=== PATIENT | male | born 1960 ===

== ENCOUNTER 2025-01-30 18:05 | Inpatient (IN) | payer MEDICARE, MEDICAID ==
[~2025-01-30] VITALS: Ht 170.2 cm; Wt 80.3 kg
[~2025-01-30 18:05] MED LIST: AMLO-258 PO; BRIM5DRO10 OU; CARV12.530 PO; CLON-501 PO; DOCU-385 PO; LANS-78 PO; LEVE250T81 PO; RISP-31 PO; TUBE5VIA TD; [UNRECOGNIZED DRUG - CODE] PO
[2025-01-30 18:53] LABS: COVID AG,FIA SOURCE NASAL SWAB
[2025-01-30 19:16] LABS: SARS-COV2 (COVID) ANTIGEN,FIA Negative (Negative)
[2025-01-30 19:20] LABS: PLATELET COUNT (AUTO) 133 K/uL (150-450); RED BLOOD CELL COUNT(AUTO) 4.72 MIL/uL (4.50-5.90); RED CELL DISTRIBUTION WIDTH 13.2 % (11.5-14.5); WHITE BLOOD COUNT (AUTO) 5.6 K/uL (4.5-11.0)
[2025-01-30 19:35] LABS: CALCIUM, TOTAL 8.7 mg/dL (8.8-10.5); CREATININE 0.62 mg/dL (0.60-1.30); GLOMERULAR FILTR. RATE CALC > 60 mL/min (>60); GLUCOSE,RANDOM 92 mg/dL (70-110); SODIUM SERUM 139 mmol/L (136-145); UREA NITROGEN, BLOOD 8 mg/dL (7-18)
[2025-01-31 07:02] LABS: PLATELET COUNT (AUTO) 141 K/uL (150-450); RED BLOOD CELL COUNT(AUTO) 4.99 MIL/uL (4.50-5.90); RED CELL DISTRIBUTION WIDTH 13.1 % (11.5-14.5); WHITE BLOOD COUNT (AUTO) 4.3 K/uL (4.5-11.0)
[2025-01-31 07:26] LABS: ASPARTATE AMINOTRANSFERASE 18 U/L (15-37); CALCIUM, TOTAL 8.9 mg/dL (8.8-10.5); CHOL/HDL RATIO 2.7 (4.2-7.3); CREATININE 0.62 mg/dL (0.60-1.30); GLOMERULAR FILTR. RATE CALC > 60 mL/min (>60); GLUCOSE,RANDOM 86 mg/dL (70-110); LDL CHOL (CALC.) 63 mg/dL (0-130); SODIUM SERUM 141 mmol/L (136-145); TOTAL PROTEIN, SERUM 7.0 g/dL (6.4-8.2); UREA NITROGEN, BLOOD 7 mg/dL (7-18)
[2025-01-31 11:00] LABS: APPEARANCE,URINE CLEAR (CLEAR); GLUCOSE, URINE (UA) NEGATIVE (NEGATIVE); LEUKOCYTE ESTERASE ,URINE NEGATIVE (NEGATIVE); NITRATE,URINE NEGATIVE (NEGATIVE); OCCULT BLOOD,URINE NEGATIVE (NEGATIVE); PH,URINE DRUG SCREEN 6.0 (5.0-8.0); SPECIFIC GRAVITIY, URINE 1.009 (1.003-1.030)
[2025-01-31 11:06] LABS: ALCOHOL, URINE DRUG SCREEN NEGATIVE (NEGATIVE); AMPHET/METH SCREEN,URINE NEGATIVE (NEGATIVE); BARBITURATE SCREEN, URINE NEGATIVE (NEGATIVE); CANNABINOID SCREEN,URINE NEGATIVE (NEGATIVE); COCAINE SCREEN,URINE NEGATIVE (NEGATIVE); METHADONE SCREEN, URINE NEGATIVE (NEGATIVE)
[2025-02-01] MEDS: ZOLPIDEM TARTRATE 10 MG TABLET PO PRN (01:16)
[2025-02-01 05:00] VITALS: O2SAT 96
[2025-02-01] MEDS ORDERED: PARO-37 PO (14:36)
[2025-02-01] MEDS ORDERED: LACT10SO85 PO (14:36)
[2025-02-01] MEDS ORDERED: CLON0.1T2 PO (14:36)
[2025-02-01] MEDS ORDERED: INFLUENZA VIRUS VACCINE TVS (6MO+) 2025-26/PF 45 MCG/0.5 ML SYRINGE IM. ONE (14:45)
[2025-02-01 14:49] VITALS: BP 138/72; PULSE 98; RESP 18; TEMP 97.8; O2SAT 97
[2025-02-01] MEDS ORDERED: ALBUTEROL SULFATE HFA 90 MCG/PUFF 8 GM INHALER IH PRN (20:00)
[2025-02-01] MEDS ORDERED: PETROLATUM,WHITE 28 GM JELLY TP PRN (20:00)
[2025-02-01] MEDS ORDERED: MAG HYDROX/ALUMINUM HYD/SIMETH ES 30 ML SUSPENSION UDCUP PO PRN (20:00)
[2025-02-01] MEDS ORDERED: IBUPROFEN 600 MG TABLET PO PRN (20:00)
[2025-02-01] MEDS ORDERED: BACITRACIN 28 GM OINTMENT TP PRN (20:00)
[2025-02-01] MEDS ORDERED: BENZOCAINE/MENTHOL [CEPACOL] LOZENGE PO PRN (20:00)
[2025-02-01] MEDS ORDERED: ONDANSETRON 4 MG TABLET PO PRN (20:00)
[2025-02-01] MEDS ORDERED: OMEPRAZOLE 20 MG CAPSULE PO PRN (20:00)
[2025-02-01] MEDS ORDERED: MAGNESIUM HYDROXIDE SUSPENSION 30 ML UDCUP PO PRN (20:00)
[2025-02-01] MEDS ORDERED: DOCUSATE SODIUM 100 MG CAPSULE PO PRN (20:00)
[2025-02-01] MEDS ORDERED: LOPERAMIDE HCL 2 MG CAPSULE PO PRN (20:00)
[2025-02-01] MEDS ORDERED: ACETAMINOPHEN 325 MG TABLET PO PRN (20:00)
[2025-02-01 20:56] VITALS: BP 109/71; PULSE 96; RESP 18; TEMP 98; O2SAT 99
[2025-02-01] MEDS: BRIMONIDINE TARTRATE 0.15% 5 ML OPHTHALMIC SOLUTION OU SCH (21:03)
[2025-02-02] MEDS: LACTULOSE 20 GM/30 ML SOLUTION UDCUP PO SCH (08:47)
[2025-02-02 09:38] VITALS: BP 132/73; PULSE 80; RESP 16; TEMP 98.1; O2SAT 95
[2025-02-02 20:15] VITALS: BP 107/54; PULSE 68; RESP 18; TEMP 98.4; O2SAT 98
[2025-02-03 09:39] VITALS: BP 119/63; PULSE 60; RESP 17; TEMP 97.9; O2SAT 95
[2025-02-03 20:37] VITALS: BP 101/60; PULSE 63; RESP 18; TEMP 98.1; O2SAT 95
[2025-02-04 10:22] VITALS: BP 112/65; PULSE 66; RESP 16; TEMP 97.7; O2SAT 96
[2025-02-04 21:01] VITALS: BP 104/57; PULSE 59; RESP 18; TEMP 98.6; O2SAT 95
[2025-02-05 21:17] VITALS: BP 111/53; PULSE 50; RESP 18; TEMP 97.1; O2SAT 97
[2025-02-06 10:22] VITALS: BP 116/96; PULSE 67; RESP 18; TEMP 96.8; O2SAT 98
[2025-02-06 20:00] VITALS: RESP 19
[2025-02-07 10:27] VITALS: RESP 18; TEMP 98.1
[2025-02-07 20:00] VITALS: RESP 18
[2025-02-08 08:00] VITALS: BP 131/71; PULSE 74; RESP 18; TEMP 98
[2025-02-08 20:45] VITALS: RESP 18
[2025-02-09 08:54] VITALS: BP 106/69; PULSE 99; RESP 17; TEMP 98.9; O2SAT 95
[2025-02-09 10:00] LABS: PLATELET COUNT (AUTO) 153 K/uL (150-450); RED BLOOD CELL COUNT(AUTO) 4.87 MIL/uL (4.50-5.90); RED CELL DISTRIBUTION WIDTH 13.2 % (11.5-14.5); WHITE BLOOD COUNT (AUTO) 5.7 K/uL (4.5-11.0)
[2025-02-09 10:13] LABS: CALCIUM, TOTAL 8.7 mg/dL (8.8-10.5); CREATININE 0.78 mg/dL (0.60-1.30); GLOMERULAR FILTR. RATE CALC > 60 mL/min (>60); GLUCOSE,RANDOM 134 mg/dL (70-110); SODIUM SERUM 140 mmol/L (136-145); UREA NITROGEN, BLOOD 17 mg/dL (7-18)
[2025-02-09 10:18] LABS: ASPARTATE AMINOTRANSFERASE 16 U/L (15-37); TOTAL PROTEIN, SERUM 6.9 g/dL (6.4-8.2)
[2025-02-09 21:03] VITALS: RESP 18; TEMP 97.9
[2025-02-10 10:51] VITALS: RESP 18
[2025-02-10 21:06] VITALS: PULSE 62; RESP 18; TEMP 98.7
[2025-02-11 08:00] VITALS: RESP 18
[2025-02-11 11:33] VITALS: RESP 19; TEMP 98.4
[2025-02-11 21:41] VITALS: BP 95/70; PULSE 72; RESP 18; TEMP 97.2
[2025-02-12 10:18] VITALS: RESP 16; TEMP 98.1
== END 2025-02-12 16:58 | DRG 885 ==
LOC: EMS 18:05 → 3EC 02-01 12:02
PROVIDERS: ADMIT Psychiatry & Neurology Psychiatry; ATTEND Psychiatry & Neurology Psychiatry
PROC: GZHZZZZ Group Psychotherapy (ICD-10-PCS; principal; 2025-02-02)
PROC: GZ58ZZZ Individual Psychotherapy, Cognitive-Behavioral (ICD-10-PCS; 2025-02-02)
PROC: GZ56ZZZ Individual Psychotherapy, Supportive (ICD-10-PCS; 2025-02-02)
DX: F25.1 Schizoaffective disorder, depressive type (principal); Z93.3 Colostomy status; F03.918 Unspecified dementia, unspecified severity, with other behavioral disturbance; F03.94 Unspecified dementia, unspecified severity, with anxiety; G82.20 Paraplegia, unspecified; Z20.822 Contact with and (suspected) exposure to COVID-19; F32.A Depression, unspecified; D64.9 Anemia, unspecified; G40.909 Epilepsy, unspecified, not intractable, without status epilepticus; G47.00 Insomnia, unspecified; I10 Essential (primary) hypertension; K21.9 Gastro-esophageal reflux disease without esophagitis; R53.81 Other malaise; Z74.01 Bed confinement status; Z79.899 Other long term (current) drug therapy; Z88.1 Allergy status to other antibiotic agents; Z88.2 Allergy status to sulfonamides; Z91.148 Patient's other noncompliance with medication regimen for other reason; Z86.73 Personal history of transient ischemic attack (TIA), and cerebral infarction without residual deficits
CPT/HCPCS: 80048; 80053; 80061; 80307; 81003; 82140; 83036; 84436; 84443; 85025; 87081; 92610; 99285; G0480